=== PATIENT | female | born 1955 | race Caucasian/White ===

== ENCOUNTER 2025-01-24 09:08 | Inpatient (IN) ==
--- NOTE | 2025-01-18 09:13 | Anesthesiology Consultation ---
Date of Service January 18, 2025 Assessment & Plan (1) Encounter for pre-operative examination: ADDENDUM 01/23/25= Per 01/22/25 PCP addendum to 01/18/25 office visit= "... review of labs and EKG, patient is healthy, and medically cleared for surgery." - No cardiac murmur noted at PCP visit 01/18/25 * EKG from Apr 22, 2021 from PCP scanned into chart showing "Normal sinus rhythm at 90bpm. Moderate voltage criteria for LVH, may be normal variant. Inferior infarct, age undetermined. Anterior infarct, age undetermined. (Similar in appearance by personal visual inspection to 01/11/25 preop EKG; patient had nuclear stress test 11/01/24 that showed no ischemia) Patient acceptable risk for surgery -Adwoa James PA-C 01/23/25824 Plan - awaiting final clearance from Dr. William Oakley pending review of pre-op testing. - check BSG am DOS. 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 Chart Review Chart Review: Pending: Refer to Additional Notes / Consult section and Patient NOT seen in Pre Admission Testing History Surgery Operation Date: 01/24/25 10:45 Proposed Procedures p L4-S1 Decompression and Fusion - Steve Hobbs DO Height/Weight Height: 5 ft 5.5 in Weight: 110.223 kg Allergies Allergy/AdvReac Type Severity Reaction Status Date / Time No Known Allergies Allergy Verified 01/17/25 09:12 Medications Home Medications Medication Instructions Recorded Confirmed Last Taken allopurinol 300 mg tablet 300 mg PO HS 01/17/25 01/17/25 Unknown amlodipine 5 mg tablet 5 mg PO HS 01/17/25 01/17/25 Unknown aspirin 81 mg tablet,delayed 81 mg PO QAM 01/17/25 01/17/25 Unknown release cholecalciferol (vitamin D3) 125 125 mcg PO BID 01/17/25 01/17/25 Unknown mcg (5,000 unit) tablet (Vitamin D3) cyclobenzaprine 10 mg tablet 10 mg PO TID PRN Spasms 01/17/25 01/17/25 Unknown ezetimibe 10 mg tablet 10 mg PO QAM 01/17/25 01/17/25 Unknown fenofibrate nanocrystallized 145 145 mg PO HS 01/17/25 01/17/25 Unknown mg tablet ferrous sulfate 325 mg (65 mg 325 mg PO QAM 01/17/25 01/17/25 Unknown iron) tablet,delayed release fexofenadine 180 mg tablet 180 mg PO QAM 01/17/25 01/17/25 Unknown glipizide 5 mg tablet, extended 5 mg PO BID 01/17/25 01/17/25 Unknown release 24 hr losartan 100 1 tab PO HS 01/17/25 01/17/25 Unknown mg-hydrochlorothiazide 25 mg tablet montelukast 10 mg tablet 10 mg PO QAM 01/17/25 01/17/25 Unknown pantoprazole 40 mg tablet,delayed 40 mg PO QAM 01/17/25 01/17/25 Unknown release paroxetine HCl 20 mg tablet 20 mg PO HS 01/17/25 01/17/25 Unknown ropinirole 1 mg tablet 1 mg PO BID 01/17/25 01/17/25 Unknown tramadol 50 mg tablet 50 mg PO Q8H PRN Pain 01/17/25 01/17/25 Unknown Past Medical History Medical History Cardiac murmur no cards Depression Diabetes mellitus, type 2 Environmental allergies GERD (gastroesophageal reflux disease) Gout History of anesthesia reaction wasn't completely under with carpal tunnel sx, could tell surgeon was cutting History of COVID-2023 Hx of migraines Hyperlipidemia Hypertension Osteoarthritis Restless leg syndrome Sleep apnea possible?? no official testing > confirms snoring all night Urinary bladder incontinence Past Family History Family History Brother Prostate cancer Mother Diabetes Past Surgical History Surgical History History of carpal tunnel release bilat History of colonoscopy History of hysterectomy History of lumpectomy of left breast no cancer hx History of tooth extraction Hx of foot surgery right Hx of tubal ligation S/P epidural steroid injection Social History Smoking Status: Never smoker Do You Dip or Chew Tobacco: No Hx Alcohol Use: No Hx Substance Use: No substance use type: does not use Lab Results Anesthesia Preop Results Results Anesthesia Widget: WBC 9.61 K/ul (4.8-10.8) 01/11/25 Hgb 12.4 g/dl (12.0-16.0) 01/11/25 Hct 39.3 % (37.0-47.0) 01/11/25 Plt 568 K/uL (130-400) H 01/11/25 Na 139 mmol/L (136-145) 01/11/25 K 3.4 mmol/L (3.5-5.1) L 01/11/25 Cl 102 mmol/L (98-107) 01/11/25 CO2 28 mmol/L (21-32) 01/11/25 BUN 18 mg/dl (6-23) 01/11/25 Creat 0.65 mg/dl (0.6-1.2) 01/11/25 Glucose Level 119 mg/dl (70-99(Fasting)) H 01/11/25 PT 11.0 Seconds (9.0-12.0) 01/11/25 PTT 33 Seconds (21-31) H 01/11/25 INR 1.0 (0.9-1.1) 01/11/25 Urine Color Yellow 01/11/25 Urine Appearance Clear (Clear) 01/11/25 Urine pH 5.5 (4.5-7.5) 01/11/25 Urine Specific [place] 1.027 (1.000-1.030) 01/11/25 Urine Protein Trace (Negative) H 01/11/25 Urine Glucose (UA) Negative (Negative) 01/11/25 Urine Ketones Trace (Negative) H 01/11/25 Urine Blood Negative (Negative) 01/11/25 Urine Nitrite Negative (Negative) 01/11/25 Urine Bilirubin Negative (Negative) 01/11/25 Urine Urobilinogen Negative (Negative) 01/11/25 Urine Leukocyte Esterase 1+ (Negative) H 01/11/25 Urine WBC (Auto) 6-10 /hpf (0-5) H 01/11/25 Urine RBC (Auto) 6-10 /hpf (0-2) H 01/11/25 Urine Hyaline Casts (Auto) 0-2 /lpf (0-2) 01/11/25 Urine Epithelial Cells (Auto) 6-10 /hpf (0-2) H 01/11/25 Urine Bacteria (Auto) None Seen (None Seen) 01/11/25 Blood Type O Positive 01/11/25 Antibody Screen NEGATIVE 01/11/25 Testing Electrocardiogram Date: 01/11/25 NSR, rate 94 bpm Minimal voltage criteria for LVH, may be normal variant Inferior infarct, age undetermined Possible anterior infarct, age undetermined Chest X-Ray Date: 09/27/24 No significant abnormality detected Stress Test Date: 11/01/24 MPHR 72% No ischemia is noted EF 67%
[2025-01-24] MEDS: LR 60ML/HR IV SCH (09:45)
[2025-01-24] MEDS: LR 15ML/HR IV SCH (09:45)
[2025-01-24] MEDS: GABAPENTIN 300 MG CAP PO SCH (09:46)
[2025-01-24] MEDS: ACETAMINOPHEN 500 MG TAB PO SCH (09:46)
[2025-01-24] MEDS: CeleBREX 200 MG CAP PO SCH (09:46)
[2025-01-24] MEDS ORDERED: ATROPINE SULFATE 0.1 MG/ML 10ML SYR IV PRN (10:32)
[2025-01-24] MEDS ORDERED: HYDROmorphone INJ 1 MG/ML SYRINGE IV PRN ×2 (10:32→14:51)
[2025-01-24] MEDS ORDERED: ONDANSETRON INJ 2 MG/ML 2 ML VIAL IV PRN ×2 (10:32→14:51)
--- NOTE | 2025-01-24 10:32 | History & Physical Bridge Note ---
Date of Service January 24, 2025 History & Physical Bridge Note I have examined the patient, reviewed the History & Physical and in the interval since the performance of the History & Physical I have noted the following changes of clinical significance: no changes noted
--- NOTE | 2025-01-24 10:33 | History & Physical Report ---
Date of Service January 24, 2025 Assessment & Plan (1) Multilevel lumbosacral spondylosis with radiculopathy: Plan: L4-S1 decompression and fusion History of Present Illness Chief Complaint: Back and leg pain Primary Care Provider: William Iraheta Capp, This is a 69-year-old female who presents chronic persistent back and leg pain after failing course of nonoperative care is here for surgical invention. Allergies Allergy/AdvReac Type Severity Reaction Status Date / Time No Known Allergies Allergy Verified 01/24/25 09:24 Home Medications Medication Instructions Recorded Confirmed Type allopurinol 300 mg tablet 300 mg PO HS 01/17/25 01/24/25 History amlodipine 5 mg tablet 5 mg PO HS 01/17/25 01/24/25 History aspirin 81 mg tablet,delayed 81 mg PO QAM 01/17/25 01/24/25 History release cholecalciferol (vitamin D3) 125 125 mcg PO BID 01/17/25 01/24/25 History mcg (5,000 unit) tablet (Vitamin D3) cyclobenzaprine 10 mg tablet 10 mg PO TID PRN Spasms 01/17/25 01/24/25 History ezetimibe 10 mg tablet 10 mg PO QAM 01/17/25 01/24/25 History fenofibrate nanocrystallized 145 145 mg PO HS 01/17/25 01/24/25 History mg tablet ferrous sulfate 325 mg (65 mg 325 mg PO QAM 01/17/25 01/24/25 History iron) tablet,delayed release fexofenadine 180 mg tablet 180 mg PO QAM 01/17/25 01/24/25 History glipizide 5 mg tablet, extended 5 mg PO BID 01/17/25 01/24/25 History release 24 hr losartan 100 1 tab PO HS 01/17/25 01/24/25 History mg-hydrochlorothiazide 25 mg tablet montelukast 10 mg tablet 10 mg PO QAM 01/17/25 01/24/25 History pantoprazole 40 mg tablet,delayed 40 mg PO QAM 01/17/25 01/24/25 History release paroxetine HCl 20 mg tablet 20 mg PO HS 01/17/25 01/24/25 History ropinirole 1 mg tablet 1 mg PO BID 01/17/25 01/24/25 History tramadol 50 mg tablet 50 mg PO Q8H PRN Pain 01/17/25 01/24/25 History Past Med/Surg History Problem List (Updated 01/24/25 @ 10:33 by Steve Hobbs, DO) Multilevel lumbosacral spondylosis with radiculopathy Encounter for pre-operative examination Medical History Cardiac murmur no cards Depression Diabetes mellitus, type 2 Environmental allergies GERD (gastroesophageal reflux disease) Gout History of anesthesia reaction wasn't completely under with carpal tunnel sx, could tell surgeon was cutting History of COVID-2023 Hx of migraines Hyperlipidemia Hypertension Osteoarthritis Restless leg syndrome Sleep apnea possible?? no official testing > confirms snoring all night Urinary bladder incontinence Surgical History History of carpal tunnel release bilat History of colonoscopy History of hysterectomy History of lumpectomy of left breast no cancer hx History of tooth extraction Hx of foot surgery right Hx of tubal ligation S/P epidural steroid injection Family History Brother Prostate cancer Mother Diabetes Social History Smoking Status: Never smoker Second Hand Exposure: Yes (son and dtr in law smok); Do You Dip or Chew Tobacco: No; Tobacco Cessation Education Requested by Patient: No Hx Alcohol Use: No Hx Substance Use: No Preferred Language: Swiss Communication Ability: Effective 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
[2025-01-24] MEDS ORDERED: MIDAZOLAM HCL 1 MG/ML 2ML VIAL ONE (10:37)
[2025-01-24] MEDS ORDERED: PHENYLEPHRINE HCL 10 MG/ML VIAL ONE ×2 (11:02→11:51)
[2025-01-24] MEDS ORDERED: ONDANSETRON INJ 2 MG/ML 2 ML VIAL ONE (11:18)
[2025-01-24] MEDS ORDERED: PROPOFOL IV EMULSION 10 MG/ML 20 ML VIAL IV ONE (11:18)
[2025-01-24] MEDS ORDERED: ROCURONIUM BROMIDE 10 MG/ML 5 ML VIAL IV ONE (11:18)
[2025-01-24] MEDS ORDERED: LIDOCAINE 2% 2 ML VIAL/AMP(20MG/ML) INFIL ONE (11:18)
[2025-01-24] MEDS ORDERED: DEXAMETHASONE SOD INJ 4 MG/ML VIAL ONE ×2 (11:18)
[2025-01-24] MEDS: BUPIVACAINE/EPINEPHRINE 0.25% 1:200,000 30 ML VIAL ONE (11:37)
[2025-01-24] MEDS: ceFAZolin 330 MG/ML 1 GM VIAL ONE (11:37)
[2025-01-24] MEDS ORDERED: HYDROmorphone INJ 2 MG/ML SYR/VIAL ONE (12:14)
[2025-01-24] MEDS ORDERED: SUGAMMADEX SODIUM 200 MG/2 ML VIAL IV ONE (12:57)
[2025-01-24] MEDS: FLOSEAL HEMOSTATIC MATRIX 10ML TOP ONE (13:03)
[2025-01-24] MEDS: SURGICEL ABSORB HEMOSTAT 2IN X 14IN TOP ONE (13:03)
--- NOTE | 2025-01-24 13:05 | Operative Report ---
Post Operative Report Pre & Post Diagnosis Operation Date: 01/24/25 10:45 Pre-Op Diagnosis: #1 multilevel lumbosacral Spondylosis with Radiculopathy #2 lumbar spondylolisthesis with radiculopathy Post-Op Diagnosis: Same I identified the patient and participated in the time-out.: Yes Procedure Operation Date: 01/24/25 10:45 Actual Procedures #1 lumbar decompression with bilateral medial facetectomies and foraminotomies L3-L4, L4-L5 L5-S1 per #2 posterior spinal L4-L5 L5-S1. #5 placement Spira 14 x 26 mm x 2 at L4-L5 and 11 x 26 mm x 2 at L5-S1. #6 placement of Koros combined with Proteus in the posterior lateral gutters and os design in the interbody space. #8 application of versa wrap of the exposed dura. L4-S1. #3 placed posterior instrumentation L4-S1 using camber. #4 Surgeon Steve Hobbs, DO Certified Medical Technician Joy Bosch Estimated Blood Loss 350 Findings See Below The patient is 5 foot 5 weighing over 107 kg with a BMI in excess of 38. The patient's body habitus did create increased technical difficulty with positioning exposure and the procedure itself. This had at least 30% increased operative time. I am recommending a modifier 22. Specimens None Indications This is a 69-year-old female presents publish diagnosis of an extensive course of nonoperative care she is here for surgical invention. Description of Procedure Patient was met with identified informed consent obtained. Patient was then taken to the operative suite underwent patient placed in a prone position on the Ted table on top of the Mj frame. All bony promises well-padded eyes inspected to ensure no external precipice upon them. This point the lumbar spine was prepped and draped in normal sterile fashion. Sharp dissection with the assistance of Bovie cautery from down to and exposing the lamina and transverse processes of L4-5 and sacral ala bilaterally. From a [place] 5 fashion complete laminectomy of L5 L4 and partial laminectomy of L3 was performed including bilateral medial facetectomies and foraminotomies addressing severe neural compression. This included bilateral medial facetectomies at L3- L4 to address all subarticular stenosis. Pedicle screws were then placed in L for L5 and S1 levels bilaterally with assistance of fluoroscopy and the purposes jaime placed. By way of transforaminal approach on the right discectomy of L5-S1 was performed endplates corrected to subcortical bleeding bone and 11 x 26 mm Spira cage tapped in position. Then proceeded to the left transforaminal region at L5-S1. Again discectomy performed. Endplates coated to subcortical bleeding bone and a second 11 x 26 mm Spira cage tapped into position. Then proceeded L4-L5 by way of transforaminal approach on the left discectomy was performed. Endplates guided to subcortical bleeding bone and a 14 x 26 mm Spira cage tapped in position. Then proceeded to the right transforaminal region at L4-5. Discectomy performed. Endplates guided to subcortically bone and a second 14 x 26 mm Spira cage tapped into position. Please note all cages were filled with os design bone graft. The rods were then compressed locked in a final position bilaterally. The transverse processes of L4-5 and sacral ala burred to subcortical bleeding bone. Koros combined with Proteus bone graft placed in posterolateral gutters. Burst wrap placed over the exposed dura. 15 round ADAMARIS drain inserted. Incision was then closed with 1 Vicryl in the fascia 2-0 Vicryl subcutaneously and 4-0 Monocryl for final skin closure. Steri-Strips sterile dressing placed. Patient waken taken PACU stable condition. Please note Joy Bosch was present at the entire procedure by the patient positioning complex portions of the surgery and final skin closure. I attest to the content of the Intraoperative Record and any orders documented therein. Any exceptions are noted below.
--- NOTE | 2025-01-24 13:15 | Fluoroscopy Report ---
FL lumbar spine 2-3V CLINICAL HISTORY: L4-S1 DECOMPRESSION AND FUSION COMPARISON STUDY: None FLUOROSCOPY TIME: 17 seconds FLUOROSCOPY IMAGES: 2 EXPOSURE DOSE: 19 mGy FINDINGS: Fluoroscopy was provided for lower lumbar fusion. IMPRESSION: Intraoperative fluoroscopy. ACT 112: Negative or not required by law. Electronically signed by: Jacinto Rushing M.D. 01/24/2025 1:14 PM
--- NOTE | 2025-01-24 14:08 | Anesthesiology Progress Note ---
Date of Service January 24, 2025 Anesthesia Post Procedure Vital Signs Vital Signs: Temp Pulse Resp BP Pulse Ox O2 Del Method O2 Flow Rate 01/24/25 14:00 36.6 C 90 13 113/66 96 Nasal Cannula 3 01/24/25 13:50 91 H 14 114/68 98 Oxymask 9 01/24/25 13:40 84 17 101/69 97 Oxymask 9 01/24/25 13:30 80 15 104/65 97 Oxymask 9 01/24/25 13:20 37.1 C 81 12 121/78 96 Oxymask 5 01/24/25 09:31 37.4 C 102 H 20 165/92 H 95 Room Air Pain Intensity Back: Pain Intensity: 3 Transfer of Care Handoff Completed per policy Notes Mental Status: alert / awake / arousable Patient Amnestic to Procedure: Yes Nausea / Vomiting: adequately controlled Pain: adequately controlled Airway Patency, RR, SpO2: stable & adequate BP & HR: stable & adequate Hydration State: stable & adequate Anesthetic Complications: no major complications apparent and Pt Satisfied with anesthetic care
[2025-01-24] MEDS ORDERED: MAGNESIUM HYDROXIDE SUSP 30 ML UDC PO PRN (14:51)
[2025-01-24] MEDS ORDERED: HYDROmorphone INJ 0.5 MG/0.5 ML SYR IV PRN (14:51)
[2025-01-24] MEDS ORDERED: ACETAMINOPHEN 1,000 MG/100 ML VIAL IV PRN (14:51)
[2025-01-24] MEDS ORDERED: METOCLOPRAMIDE HCL INJ 5 MG/ML 2 ML VIAL IV PRN (14:51)
[2025-01-24] MEDS ORDERED: diphenhydrAMINE Capsule 25 MG CAP PO PRN (14:51)
[2025-01-24] MEDS ORDERED: CYCLOBENZAPRINE HCL 10 MG TAB PO PRN (14:51)
[2025-01-24] MEDS ORDERED: LORazepam Inj 0.5 MG in SYRINGE 0.25 ML IV PRN (14:51)
[2025-01-24] MEDS ORDERED: SOD PHOSPHATE/SOD BIPHOSPHATE ENEMA 132 ML BTL PR PRN (14:51)
[2025-01-24] MEDS ORDERED: DO NOT ADMINISTER FLU VACCINE PRN (14:51)
[2025-01-24] MEDS ORDERED: PHARMACY GLYCEMIC MGMT CONSULT PRN (14:51)
[2025-01-24] MEDS ORDERED: PROMETHAZINE 12.5 MG/50.5 ML BAG IV PRN (14:51)
[2025-01-24] MEDS ORDERED: ONDANSETRON 4 MG OD TAB PO PRN (14:51)
[2025-01-24] MEDS ORDERED: FAMOTIDINE 20 MG TAB PO PRN (14:51)
[2025-01-24] MEDS ORDERED: ACETAMINOPHEN 500 MG TAB PO PRN (14:51)
[2025-01-24] MEDS ORDERED: NALOXONE HCL 0.4 MG/1 ML VIAL/CARP IV PRN (14:51)
[2025-01-24] MEDS ORDERED: LORazepam 0.5 MG TAB PO PRN (14:51)
[2025-01-24] MEDS ORDERED: DO NOT ADMINISTER PNEUMOCOCCAL VACCINE PRN (14:51)
[2025-01-24] MEDS ORDERED: ALUMINUM/MAGNESIUM SUSP 30 ML UDC PO PRN (14:51)
[2025-01-24] MEDS: SODIUM CHLORIDE 0.9% 1,000 ML IV SCH (15:03)
--- NOTE | 2025-01-24 15:12 | Pharmacy Report ---
Pharmacy Glycemic Short Note 2 - Date of Service January 24, 2025 - Glycemic Short BSG Results (Last 24 hours): 01/24/25 01/24/25 09:20 13:22 POC Glucose 145 H 143 H OUTPATIENT ANTIDIABETIC REGIMEN: * glipizide 5 mg PO BIDM HbA1c: ordered for 01/25/25 ASSESSMENT: * BW is a 69 year old female POD #0 s/p spinal decompression/fusion * Received 8 mg IV dexamethasone in OR and ordered 6 mg IV daily x 3 doses * Preop blood sugar of 145 mg/dL and postop blood sugar of 143 mg/dL * Only on glipizide as outpatient, but no recent HbA1c in records so will order for tomorrow PLAN FOR INPATIENT GLYCEMIC CONTROL: * Hold outpatient oral diabetes medications * Basal insulin * Lantus 25 units SQ X 1 (~0.3 unit/kg of adjusted body weight) * Reassess in AM with steroids * Bolus insulin * NovoLog per scale ACHS or Q6hrs while NPO * Goal Range: Low 110 mg/dL - High 140 mg/dL * Correction Factor: 20 mg/dL/unit * Nutritional / Prandial insulin per carb ratio of 1 unit per 6 grams CHO consumed
[2025-01-24] MEDS ORDERED: GLUCAGON FOR INJ 1 MG VIAL SQ PRN (15:15)
[2025-01-24] MEDS ORDERED: CARBOHYDRATES FOR HYPOGLYCEMIA PO PRN (15:15)
[2025-01-24] MEDS ORDERED: DEXTROSE 50% 50 ML SYRINGE IV PRN (15:15)
[2025-01-24] MEDS ORDERED: GLUCOSE 40% GEL 15 GM TUBE PO PRN (15:15)
[2025-01-24] MEDS ORDERED: GLUCOSE 10 TAB/TUBE PO PRN (15:15)
--- NOTE | 2025-01-24 16:24 | Consultation ---
Date of Consultation January 24, 2025 Assessment & Plan (1) S/P spinal surgery: (2) Multilevel lumbosacral spondylosis with radiculopathy: Post op day# 0 S/P L3-S1 decompression, L4-S1 fusion by Dr Faby GREGG# 350ml Pain management per ortho Wound management per ortho PT/OT as appropriate DVT prophylaxis per ortho Incentive spirometry Monitor H&H for acute blood loss anemia (3) Hypertension: BP stable currently Continue amlodipine with holding parameters Hold losartan, HCTZ and reassess tomorrow (4) Hyperlipidemia: Continue home fenofibrate, ezetimibe (5) Diabetes mellitus, type 2: A1c: 6.2 on 04/05/24 per scanned medical clearance office note Hold home glipizide Glycemic pharmacist consulted by primary team and is managing. Appreciate glycemic management (6) Gout: Continue allopurinol (7) GERD (gastroesophageal reflux disease): Continue PPI (8) Restless leg syndrome: Continue ropinirole DVT Prophylaxis SCDs Disposition per primary team Follows with Dr William Oakley at [facility] for routine care Pt was seen and care coordinated with Dr Mclean. See addendum I spent a total of 45 minutes reviewing notes, outpatient records, labs, medication, coordinating, documenting and providing care for this patient excluding time spent in the performance of separately billed services and excluding time spent by another provider/QHP. Thank you for this consultation. We will follow the patient with you during their hospital stay. You can reach a member of the [facility] Hospitalist Team 09/11 via [facility] Supervising Physician Co-Signing Physician Notes Patient seen and examined at bedside. Patient states pain is controlled at this time, doing well post op. On exam, ADAMARIS drain noted on right side, sitting comfortably in bed. Patient POD 0 for lumbar fusion and decompression. Monitor pain and treat as needed, per ortho. Monitor creatinine, Hgb, leukocytosis post operatively. Restart home BP meds when able. I have seen and discussed the case with the collaborating advanced practitioner. I agree with the above H&P. I have reviewed and confirmed the patients medical history, the findings on physical examination, and the patients diagnosis and treatment plan with Prachi Romero PA-C and agree with the information documented. I spent a total of 15 minutes coordinating, documenting, and providing care for this patient excluding time spent in the performance of separately billed services. All of the aforementioned completed outside of collaborating with the assigned advanced practitioner for a full treatment plan. I have reviewed the advanced practitioner's documentation, and I agree with, and take responsibility for the plan of care History of Present Illness Requesting Physician: Dr Hobbs Reason for Consultation: post op medical management Attending Physician: Steve Hobbs, DO History of Present Illness Patient is 69 year old female with PMH HTN, dyslipidemia, DM II, gout, GERD, depression, RLS seen in medical consultation s/p decompression fusion L4-S1 today by Dr Hobbs. Post op patient reports some left leg pain. Denies paresthesias. Has De cath in place. Last BM reported last evening. Denies fever/chills, diaphoresis, N/V/D, FERNANDEZ, dizziness, CP, SOB, cough, rhinorrhea, abdominal pain, weakness, extremity edema, rashes, urinary symptoms. Allergies Allergy/AdvReac Type Severity Reaction Status Date / Time No Known Allergies Allergy Verified 01/24/25 09:24 Home Medications Medication Instructions Recorded Confirmed Type allopurinol 300 mg tablet 300 mg PO HS 01/17/25 01/24/25 History amlodipine 5 mg tablet 5 mg PO HS 01/17/25 01/24/25 History aspirin 81 mg tablet,delayed 81 mg PO QAM 01/17/25 01/24/25 History release cholecalciferol (vitamin D3) 125 125 mcg PO BID 01/17/25 01/24/25 History mcg (5,000 unit) tablet (Vitamin D3) cyclobenzaprine 10 mg tablet 10 mg PO TID PRN Spasms 01/17/25 01/24/25 History ezetimibe 10 mg tablet 10 mg PO QAM 01/17/25 01/24/25 History fenofibrate nanocrystallized 145 145 mg PO HS 01/17/25 01/24/25 History mg tablet ferrous sulfate 325 mg (65 mg 325 mg PO QAM 01/17/25 01/24/25 History iron) tablet,delayed release fexofenadine 180 mg tablet 180 mg PO QAM 01/17/25 01/24/25 History glipizide 5 mg tablet, extended 5 mg PO BID 01/17/25 01/24/25 History release 24 hr losartan 100 1 tab PO HS 01/17/25 01/24/25 History mg-hydrochlorothiazide 25 mg tablet montelukast 10 mg tablet 10 mg PO QAM 01/17/25 01/24/25 History pantoprazole 40 mg tablet,delayed 40 mg PO QAM 01/17/25 01/24/25 History release paroxetine HCl 20 mg tablet 20 mg PO HS 01/17/25 01/24/25 History ropinirole 1 mg tablet 1 mg PO BID 01/17/25 01/24/25 History tramadol 50 mg tablet 50 mg PO Q8H PRN Pain 01/17/25 01/24/25 History Patient History Medical History History of COVID-2023 Environmental allergies Osteoarthritis Hyperlipidemia Hypertension History of anesthesia reaction wasn't completely under with carpal tunnel sx, could tell surgeon was cutting Gout Urinary bladder incontinence Restless leg syndrome GERD (gastroesophageal reflux disease) Diabetes mellitus, type 2 Depression Hx of migraines Cardiac murmur no cards Sleep apnea possible?? no official testing > confirms snoring all night Surgical History S/P epidural steroid injection Hx of foot surgery right History of carpal tunnel release bilat History of colonoscopy History of lumpectomy of left breast no cancer hx History of hysterectomy Hx of tubal ligation History of tooth extraction Family History Brother Prostate cancer Mother Diabetes Social History Smoking Status: Never smoker Second Hand Exposure: Yes (son and dtr in law smok); Do You Dip or Chew Tobacco: No; Tobacco Cessation Education Requested by Patient: No Hx Alcohol Use: No Hx Substance Use: No Preferred Language: Slovenian Communication Ability: Effective Shipping Clerk Required: No Beliefs That Will Affect Care: None Current Living Situation: Spouse Other Information That Helps Us Care for You: No Feels Safe at Home: Yes Safety Concerns: Feels Safe At This Time Assistive Devices: Glasses and Walker Review of Systems Review of Systems: All systems reviewed & are unremarkable except as noted in HPI & below Physical Exam Physical Exam: General: no distress, obese female Head: normocephalic, atraumatic Eyes: conjunctiva non-injected, anicteric ENT: normal inspection external ears, nose, mucous membranes moist Neck: supple, trachea midline Lungs: clear, no respiratory distress, no wheezing/rhonchi/rales CV: RRR, no murmur, no pretibial edema Abd: normal BS, soft, non-tender Back: ADAMARIS drain with serosanguineous drainage Ext: no cyanosis, no calf tenderness; bilateral pedal pushes and pulls intact, Bilateral dorsalis pedis pulses palpable, sensation to light touch intact bilateral feet Neuro: A&O x 3, no focal deficits noted, normal affect Skin: warm, dry Results & Data Vital Signs (Past 12 Hours) Vital Signs Temp Pulse Pulse Resp BP Pulse Ox O2 Del Method 01/24/25 15:24 36.3 C L 88 17 121/75 96 Room Air 01/24/25 15:02 36.4 C L 82 17 116/67 97 Room Air 01/24/25 14:35 Nasal Cannula 01/24/25 14:35 36.6 C 82 17 121/77 100 Nasal Cannula 01/24/25 14:20 88 16 116/58 L 91 Nasal Cannula 01/24/25 14:10 85 15 121/66 93 Nasal Cannula 01/24/25 14:00 36.6 C 90 13 113/66 96 Nasal Cannula 01/24/25 13:50 91 H 14 114/68 98 Oxymask 01/24/25 13:40 84 17 101/69 97 Oxymask 01/24/25 13:30 80 15 104/65 97 Oxymask 01/24/25 13:20 37.1 C 81 12 121/78 96 Oxymask 01/24/25 09:31 37.4 C 102 H 20 165/92 H 95 Room Air O2 Flow Rate 01/24/25 15:24 01/24/25 15:02 01/24/25 14:35 2 01/24/25 14:35 3 01/24/25 14:20 3 01/24/25 14:10 3 01/24/25 14:00 3 01/24/25 13:50 9 01/24/25 13:40 9 01/24/25 13:30 9 01/24/25 13:20 5 01/24/25 09:31
[2025-01-24] MEDS ORDERED: LANTUS PER UNIT CHARGE SC ONE (16:30)
[2025-01-24] MEDS: INSULIN ASPART PER UNIT CHARGE SC SCH (17:05)
[2025-01-24] MEDS: LANTUS PER UNIT CHARGE SC ONE (17:06)
[2025-01-24] MEDS: CHOLECALCIFEROL 125 MCG (5,000 UNITS) TAB PO SCH (20:28)
[2025-01-24] MEDS: FENOFIBRATE NANOCRYSTALLIZED 145 MG TABLET PO SCH (20:30)
[2025-01-24] MEDS: DOCUSATE SODIUM/SENNA 50/8.6MG TAB PO SCH (20:34)
[2025-01-24] MEDS ORDERED: NON-FORMULARY MEDICATION (Glipizide 5 mg Tablet Extended Release 24hr) PO SCH (21:00)
[2025-01-24] MEDS ORDERED: LOSARTAN/HCTZ 50/12.5MG TAB PO SCH (21:00)
[2025-01-25 03:58] LABS: Hematocrit (blood only) 31.4 % (37.0-47.0); Hemoglobin 9.9 g/dl (12.0-16.0); Immature Granulocytes # (auto) 0.06 K/uL (0.01-0.20); Immature Granulocytes % (auto) 0.5 %; Mean Corpuscular Hemoglobin 27.4 pg (25.0-34.0); Mean Corpuscular Volume 87.0 fL (80.0-100.0); Platelet Count 443 K/uL (130-400); RDW Standard Deviation 44.4 fL (36.4-46.3); Red Blood Count 3.61 M/uL (4.20-5.40); White Blood Count 11.48 K/ul (4.8-10.8)
[2025-01-25 04:12] LABS: Anion Gap 7.0 (3-11); Blood Urea Nitrogen 17.0 mg/dl (6-23); Calcium 8.8 mg/dl (8.6-10.3); Carbon Dioxide 27.0 mmol/L (21-32); Chloride 104.0 mmol/L (98-107); Creatinine Clr Calc Pharmacy 112.4 ml/min; Glucose 117.0 mg/dl (70-99(Fasting)); Potassium 3.8 mmol/L (3.5-5.1); Sodium 138.0 mmol/L (136-145)
[2025-01-25] MEDS: POLYETHYLENE (MIRALAX) 17 GM PACK PO SCH (05:46)
[2025-01-25 08:12] LABS: Hemoglobin A1C 6.8 % (4.5-5.6)
[2025-01-25] MEDS: ACETAMINOPHEN 500 MG TAB PO PRN (08:13)
[2025-01-25] MEDS: EZETIMIBE 10 MG TAB PO SCH (08:15)
[2025-01-25] MEDS: ASPIRIN 81 MG ECTAB PO SCH (08:15)
[2025-01-25] MEDS: dexAMETHasone 6 MG in SYRINGE 0 ML IV SCH (08:15)
[2025-01-25] MEDS: MONTELUKAST SODIUM 10 MG TABLET PO SCH (08:16)
--- NOTE | 2025-01-25 08:19 | Orthopedic Progress Note ---
Date of Service January 25, 2025 Assessment & Plan (1) Multilevel lumbosacral spondylosis with radiculopathy: Plan: Chayo is postoperative day 1 status post L4-S1 decompression and fusion. Today we will start physical therapy. She is getting Decadron as this should help with some of her left leg pain. DVT prophylaxis is in the form teds and SCDs. Maintain ADAMARIS drain. Will start aggressive bowel regimen. Anticipate discharge over the weekend Admission and Anticipated Discharge Date Admission Date: January 24, 2025 Meche Domingo is postoperative day 1 status post L4-S1 decompression and fusion. She is having some left leg pain. Left leg pain was her affected side preoperatively. Has some paresthesias in her foot. No right lower extremity symptoms. ADAMARIS drain output left shift is 40 cc. H&H are 9.9 and 31.4 respectively. Review of Systems Review of Systems: All systems reviewed & are unremarkable except as noted in HPI & below Physical Exam Physical Exam: She is alert and oriented x 3 in no acute distress Cooperative with exam Strength is 5/5 bilateral lower extremities to EHL, dorsiflexion, plantarflexion, quadriceps, hamstrings Results & Data Vital Signs (Past 12 Hours) Vital Signs Temp Pulse Resp BP BP Pulse Ox O2 Del Method 01/25/25 08:01 36.8 C 94 H 18 129/68 97 Room Air 01/25/25 03:32 36.7 C 84 20 123/70 96 Room Air 01/25/25 00:13 36.6 C 85 20 127/70 96 Room Air 01/24/25 23:17 Nasal Cannula O2 Flow Rate 01/25/25 08:01 01/25/25 03:32 01/25/25 00:13 01/24/25 23:17 2
[2025-01-25] MEDS ORDERED: FEXOFENADINE HCL 180 MG TAB PO SCH (09:00)
[2025-01-25] MEDS ORDERED: FERROUS SULFATE 325 MG TAB PO SCH (09:00)
--- NOTE | 2025-01-25 11:39 | Hospitalist Progress Note ---
Date of Service January 25, 2025 Assessment & Plan (1) S/P spinal surgery: (2) Multilevel lumbosacral spondylosis with radiculopathy: Plan: S/P L3-S1 decompression, L4-S1 fusion by Dr Hobbs on 01/25/2025 EBL# 350ml Pain management per ortho Wound management per ortho PT/OT as appropriate DVT prophylaxis per ortho Incentive spirometry Monitor H&H for acute blood loss anemia (3) Hypertension: Plan: BP stable currently Continue amlodipine with holding parameters Hold losartan, HCTZ (4) Hyperlipidemia: Plan: Continue home fenofibrate, ezetimibe (5) Diabetes mellitus, type 2: Plan: A1c: 6.2 on 04/05/24 per scanned medical clearance office note Hold home glipizide Glycemic pharmacist consulted by primary team and is managing. Appreciate glycemic management (6) Gout: Plan: Continue allopurinol (7) GERD (gastroesophageal reflux disease): Plan: Continue PPI (8) Restless leg syndrome: Plan: Continue ropinirole DVT Prophylaxis SCDs Disposition per primary team Admission and Anticipated Discharge Date Admission Date: January 24, 2025 Subjective Patient seen and examined at bedside. She is sitting up on a chair comfortably; denies any pain or discomfort She denies fever, chills, chest pain, shortness of breath or abdominal pain. Review of Systems Review of Systems: All systems reviewed & are unremarkable except as noted in Subjective Physical Exam Physical Exam: General: no distress, obese female Neck: supple, trachea midline Lungs: clear, no respiratory distress, no wheezing/rhonchi/rales CV: RRR, no murmur, no pretibial edema Abd: normal BS, soft, non-tender Back: ADAMARIS drain with serosanguineous drainage Ext: no cyanosis, no calf tenderness; bilateral pedal pushes and pulls intact, Bilateral dorsalis pedis pulses palpable, sensation to light touch intact bilateral feet Neuro: A&O x 3, no focal deficits noted, normal affect Skin: warm, dry Results & Data Results & Data Vital Signs (Past 12 Hours) Vital Signs Temp Pulse Resp BP BP Pulse Ox O2 Del Method 01/25/25 08:01 36.8 C 94 H 18 129/68 97 Room Air 01/25/25 03:32 36.7 C 84 20 123/70 96 Room Air 01/25/25 00:13 36.6 C 85 20 127/70 96 Room Air
[2025-01-25] MEDS: LANTUS PER UNIT CHARGE SC SCH (12:12)
--- NOTE | 2025-01-25 15:24 | Pharmacy Report ---
Pharmacy Glycemic Short Note 2 - Date of Service January 25, 2025 - Glycemic Short BSG Results (Last 24 hours): 01/24/25 01/24/25 01/25/25 16:22 20:45 03:13 Glucose 117 H POC Glucose 226 H 158 H 01/25/25 01/25/25 07:16 11:22 Glucose POC Glucose 134 H 171 H OUTPATIENT ANTIDIABETIC REGIMEN: * glipizide 5 mg PO BIDM HbA1c: 6.8% ASSESSMENT: 01/25 * Fasting BSG of 134 mg/d near goal. Patient received Lantus 30 units last evening. Will slightly back off today. * Post prandial BSGs well controlled thus far. Continue current Novolog parameters given dexamethasone IV is continuing for 3 days. 01/24 * BW is a 69 year old female POD #0 s/p spinal decompression/fusion * Received 8 mg IV dexamethasone in OR and ordered 6 mg IV daily x 3 doses * Preop blood sugar of 145 mg/dL and postop blood sugar of 143 mg/dL * Only on glipizide as outpatient, but no recent HbA1c in records so will order for tomorrow PLAN FOR INPATIENT GLYCEMIC CONTROL: * Hold outpatient oral diabetes medications * Basal insulin * Lantus 20 units SC today, then 15-20 units SC qAM starting 01/26 * Bolus insulin * NovoLog per scale ACHS or Q6hrs while NPO * Goal Range: Low 110 mg/dL - High 140 mg/dL * Correction Factor: 15 mg/dL/unit * Nutritional / Prandial insulin per carb ratio of 1 unit per 5 grams CHO consumed
--- NOTE | 2025-01-26 07:49 | Orthopedic Progress Note ---
Date of Service January 26, 2025 Assessment & Plan (1) Multilevel lumbosacral spondylosis with radiculopathy: Plan: Patient is doing well postoperative #2. Will continue with gait training and ambulation through physical therapy. We will maintain GI DVT prophylaxis and pain control measures. She will likely be discharged to home tomorrow morning. Admission and Anticipated Discharge Date Admission Date: January 24, 2025 Subjective Patient is seen bedside in room 303. She is postop day #2 status post lumbar decompression fusion from L4-S1. States she does have some back pain and requires pain medication regularly. She has numbing sensations in the left leg as well. She is not nauseous. She has been up and ambulating with physical therapy. She denies any other numbness, tingling, or paresthesias. Physical Exam Physical Exam: On exam she is alert and oriented. She is sitting upright in a chair. Her lower extreme motor exam reveals no focal atrophy her strength and sensation are both intact abdomen soft and nontender calves are supple and nontender. Respirations are unlabored and regular. Results & Data Vital Signs (Past 12 Hours) Vital Signs Temp Pulse Resp BP Pulse Ox O2 Del Method 01/26/25 07:16 37.2 C 80 20 144/74 H 94 Room Air 01/25/25 22:53 36.7 C 83 16 131/69 95 Room Air 01/25/25 22:10 Room Air
--- NOTE | 2025-01-26 11:54 | Hospitalist Progress Note ---
Date of Service January 26, 2025 Assessment & Plan (1) S/P spinal surgery: (2) Multilevel lumbosacral spondylosis with radiculopathy: Plan: Acute blood loss anemia S/P L3-S1 decompression, L4-S1 fusion by Dr Hobbs on 01/25/2025 EBL# 350ml Hemoglobin down trended from 12.4-9.9 Pain management per ortho Wound management per ortho PT/OT as appropriate DVT prophylaxis per ortho Incentive spirometry (3) Hypertension: Plan: BP stable currently Continue amlodipine with holding parameters Hold losartan, HCTZ - resume at discharge. (4) Hyperlipidemia: Plan: Continue home fenofibrate, ezetimibe (5) Diabetes mellitus, type 2: Plan: A1c: 6.2 on 04/05/24 per scanned medical clearance office note Hold home glipizide Glycemic pharmacist consulted by primary team and is managing. Appreciate glycemic management (6) Gout: Plan: Continue allopurinol (7) GERD (gastroesophageal reflux disease): Plan: Continue PPI (8) Restless leg syndrome: Plan: Continue ropinirole DVT Prophylaxis SCDs Disposition per primary team Admission and Anticipated Discharge Date Admission Date: January 24, 2025 Subjective Patient seen and examined at bedside. Comfortable; not in distress. Denies fever, chills, chest pain, shortness of breath, abdominal pain or urinary symptoms. No significant overnight events Review of Systems Review of Systems: All systems reviewed & are unremarkable except as noted in Subjective Physical Exam Physical Exam: General: no distress, obese female Neck: supple, trachea midline Lungs: clear, no respiratory distress, no wheezing/rhonchi/rales CV: RRR, no murmur, no pretibial edema Abd: normal BS, soft, non-tender Back: ADAMARIS drain with serosanguineous drainage Ext: no cyanosis, no calf tenderness; bilateral pedal pushes and pulls intact, Bilateral dorsalis pedis pulses palpable, sensation to light touch intact bilateral feet Neuro: A&O x 3, no focal deficits noted, normal affect Skin: warm, dry Results & Data Results & Data Vital Signs (Past 12 Hours) Vital Signs Temp Pulse Resp BP Pulse Ox O2 Del Method 01/26/25 07:16 37.2 C 80 20 144/74 H 94 Room Air
--- NOTE | 2025-01-26 14:08 | Pharmacy Report ---
Pharmacy Glycemic Short Note 2 - Date of Service January 26, 2025 - Glycemic Short BSG Results (Last 24 hours): 01/25/25 01/25/25 01/26/25 16:06 20:32 07:17 POC Glucose 160 H 116 H 105 H 01/26/25 11:15 POC Glucose 147 H OUTPATIENT ANTIDIABETIC REGIMEN: * glipizide 5 mg PO BIDM HbA1c: 6.8% ASSESSMENT: 01/26 * Fasting 105 mg/dL this morning, received 15 units of lantus, will reduce scale for tomorrow AM * Continue current novolog parameters as BSGs have been below 180 mg/dl 01/25 * Fasting BSG of 134 mg/d near goal. Patient received Lantus 30 units last evening. Will slightly back off today. * Post prandial BSGs well controlled thus far. Continue current Novolog parameters given dexamethasone IV is continuing for 3 days. 01/24 * BW is a 69 year old female POD #0 s/p spinal decompression/fusion * Received 8 mg IV dexamethasone in OR and ordered 6 mg IV daily x 3 doses * Preop blood sugar of 145 mg/dL and postop blood sugar of 143 mg/dL * Only on glipizide as outpatient, but no recent HbA1c in records so will order for tomorrow PLAN FOR INPATIENT GLYCEMIC CONTROL: * Hold outpatient oral diabetes medications * Basal insulin * Lantus 15 units SC today, then 10-15 units SC qAM starting 01/27 * Bolus insulin * NovoLog per scale ACHS or Q6hrs while NPO * Goal Range: Low 110 mg/dL - High 140 mg/dL * Correction Factor: 15 mg/dL/unit * Nutritional / Prandial insulin per carb ratio of 1 unit per 5 grams CHO consumed
--- NOTE | 2025-01-27 06:34 | Discharge Summary ---
Date of Service January 27, 2025 Admission HPI Per Admitting Provider This is a 69-year-old female who presents chronic persistent back and leg pain after failing course of nonoperative care is here for surgical invention. Discharge Data Consultations 01/24/25 14:51 Consult Hospitalist Routine Procedures Performed Operation Date: 01/24/25 10:45 Actual Procedures p L4-S1 Decompression and Fusion(Not Applicable) - Steve Hobbs DO Hospital Course (1) Multilevel lumbosacral spondylosis with radiculopathy: Patient is a pleasant 69-year-old female with history physical examination radiographic images consistent with the above-mentioned diagnosis. This reason she is brought to the operating room on 01/24/2025 and undergone a lumbar decompression and fusion from L4 to the sacrum. She left the operating with a ADAMARIS drain and De in place is transferred to PACU in stable condition. She was then transferred to the orthopedic floor. She was seen by physical therapy postoperative day #1. She was placed on GI DVT prophylaxis and pain control medications. Throughout her hospital course her calves remain supple and nontender her calves remain supple and nontender. Today on postop day #3 she is deemed safe for home discharge. Her discharge instructions are to change her dressing once daily once there is no drainage she may shower. She should not drive until she sees us in the office approximately 2 weeks. She is to avoid any bending lifting that lift anything heavier than 7 pounds. She will be seen in the office for follow-up in 2 weeks or sooner if she develops any redness around the incision increased pain drainage from the incision fevers or chills.
[2025-01-27 07:09] VITALS: BP 126/68; RESP 16; TEMP 98.4; O2SAT 94
--- NOTE | 2025-01-27 11:36 | Hospitalist Progress Note ---
Date of Service January 27, 2025 Assessment & Plan (1) S/P spinal surgery: (2) Multilevel lumbosacral spondylosis with radiculopathy: Plan: Acute blood loss anemia S/P L3-S1 decompression, L4-S1 fusion by Dr Hobbs on 01/25/2025 EBL# 350ml Hemoglobin down trended from 12.4-9.9 Pain management per ortho Wound management per ortho PT/OT as appropriate DVT prophylaxis per ortho Incentive spirometry (3) Hypertension: Plan: BP stable currently Continue amlodipine with holding parameters Hold losartan, HCTZ - resume at discharge. (4) Hyperlipidemia: Plan: Continue home fenofibrate, ezetimibe (5) Diabetes mellitus, type 2: Plan: A1c: 6.2 on 04/05/24 per scanned medical clearance office note Hold home glipizide Glycemic pharmacist consulted by primary team and is managing. Appreciate glycemic management (6) Gout: Plan: Continue allopurinol (7) GERD (gastroesophageal reflux disease): Plan: Continue PPI (8) Restless leg syndrome: Plan: Continue ropinirole DVT Prophylaxis SCDs Disposition per primary team Admission and Anticipated Discharge Date Admission Date: January 24, 2025 Subjective Patient seen and examined at bedside. Denies fever, chills, chest pain, shortness of breath, abdominal pain or urinary symptoms. Review of Systems Review of Systems: All systems reviewed & are unremarkable except as noted in Subjective Physical Exam Physical Exam: General: no distress, obese female Neck: supple, trachea midline Lungs: clear, no respiratory distress, no wheezing/rhonchi/rales CV: RRR, no murmur, no pretibial edema Abd: normal BS, soft, non-tender Back: ADAMARIS drain with serosanguineous drainage Ext: no cyanosis, no calf tenderness; bilateral pedal pushes and pulls intact, Bilateral dorsalis pedis pulses palpable, sensation to light touch intact bilateral feet Neuro: A&O x 3, no focal deficits noted, normal affect Skin: warm, dry Results & Data Results & Data Vital Signs (Past 12 Hours) Vital Signs Temp Pulse Resp BP Pulse Ox O2 Del Method 01/27/25 07:35 Room Air 01/27/25 07:07 36.9 C 70 16 126/68 94 Room Air
[2025-01-27 11:40] VITALS: PULSE 88
== END 2025-01-27 12:24 | disposition home or self-care (01) | DRG 427 ==
LOC: ASU 09:08 → 3E 13:10